=== PATIENT | female | born 1995 | race Caucasian/White ===

== ENCOUNTER → 2016-12-17 | Outpatient (CLI) | payer MEDICAID ==
[~2016-12-17] MED LIST: CIPRO 500MG TA500 MG PO; CITALOPRAM HYDR20 MG PO; CLARITIN-D 12HR1 T12 PO; IBU400 MG PO; KEFLEX 500MG.500 MG PO; MOTRIN 400MG.400 MG PO; NICOTINE T21 MG/24 H TD; NOMEDS XX; PRENATAL FORTE PO; TYLENOL ES500 M1 PO; Tri-Sprintec 281 TAB PO
[2016-12-21 20:36] LABS: Neisseria gonorrhoeae, NAA Negative (Negative)
== END ==
LOC: LAB 16:20
PROVIDERS: Nurse Practitioner Obstetrics & Gynecology
DX: Z72.51 High risk heterosexual behavior (principal)

== ENCOUNTER 2017-03-17 00:31 | Emergency (ER) | payer MEDICAID ==
[~2017-03-17] VITALS: Ht 167.6 cm; Wt 68.0 kg
[2017-03-17 01:11] LABS: AMPHETAMINES/METAMPHETAMINES NEGATIVE ng/mL (<1000)
[2017-03-17 01:14] LABS: URINE BILIRUBIN - DIPSTICK NEGATIVE (NEG); URINE BLOOD TRACE-LYSED (NEG)
[2017-03-17 01:56] LABS: LYMPH # 3.1 K/mm3 (0.7-4.5); LYMPH % 36.4 % (10-50.0)
[2017-03-17 02:01] LABS: HEMOGLOBIN 11.9 g/dL (12.2-16.2)
--- NOTE | 2017-03-17 03:28 | Emergency Room Report ---
History of Present Illness Time Seen by MD Hough Presenting Problem in Triage Pt arrived:Walked Presenting Problem:RIGHT ARM AND LEG NUMBNESS. SHE ADVISES SHE WAS SHOPPING AT [facility] AND TOUCHED AN UNKNOWN WHITE SUBSTANCE AND STARTED ITCHING. 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 N Clinical Suspician of Infection? N Mental Status: 1 - Regular (Normal Baseline) Sepsis Risk: Have you (or family members/close friends) recently traveled outside the [place]? N If Yes, where/when: Have you had exposure to infectious disease within the past month? N TB? Other? Specify: Source patient, RN notes reviewed, old records Exam Limitations no limitations Comment pt with tingling and numbness after exposure to substance at [facility] Cardiac Chest Pain Chest pain indicative of cardiac No Timing/Duration this evening Severity moderate ALLERGIES Coded Allergies: No Known Allergies (02/19/16) History Medical History General CAD? No Angina: No [place]: No Hypertension? No Hyperlipidemia? No CHF? No DVT? No PE? No COPD? No Asthma? No Anemia? No GERD? No Gastric ulcers? No GI Bleed? No Hernia? No Thyroid Problems? No Hypothyroidism? No CVA? No Seizures? No Diabetes? No Renal Insuffiency? No End Stage Renal Disease? No UTI? No Stones? No BPH? No GB Disease: No Nephritic Syndrome? No Asplenia? No Hepatitis? No Sickle Cell Disease? No Arthritis? No Migraines? No Cataracts? No Glaucoma? No MRSA? No HIV? No TB? No Anxiety? Yes Depression? Yes Cancer? No More? 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 Respiratory denies cough, denies shortness of breath, denies wheezing Cardiovascular denies chest pain, denies palpitations, denies syncope Gastrointestinal denies abdominal pain, denies diarrhea, denies vomiting Genitourinary denies: dysuria, frequency, hesitancy, hematuria. Musculoskeletal denies back pain, denies joint pain, denies joint swelling, denies neck pain Skin denies rash Psychiatric/Neurological see HPI, anxiety, denies seizure Physical Exam Vital Signs Vital Signs Date Time Temp Pulse Resp B/P Pulse O2 O2 Flow FiO2 Ox Delivery Rate 03/17 0331 98.2 52 20 114/57 98 03/17 0330 52 20 114/57 98 03/17 0215 57 20 98/57 98 03/17 0038 98.2 63 16 110/60 98 - WBC >12,000 or <4,000 or 10% bands? 2 or more SIRS Criteria Met? B/P: MAP:76 Creatinine >2.0? UA output<0.5ml/kg/hr for 2 hrs? Platelet count >100,000? Lactate >2.0mmol/1? INR >1.2 or PTT > than 60 sec? Evidence of Organ Dysfunction? Provider documented clinical suspician of infection? N Sepsis Criteria Count: 0 Sepsis Risk: General Appearance no apparent distress Eye Exam - bilateral eye PERRL, bilateral eye EOMI Ear, Nose, Throat normal ENT inspection Neck supple Respiratory Status No: respiratory distress. Lung Sounds bilateral: lungs clear. 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 No Results/Orders Laboratory Tests 03/17/17 0140: Sodium 140, Potassium 3.6, Chloride 104, Carbon Dioxide 26, BUN 10, Creatinine 0.7, Estimated Creat Clear 135, Estimated GFR (MDRD) 105, Glucose 87, Calcium 9.0, Total Bilirubin 0.4, AST 9 L, ALT 20, Alkaline Phosphatase 48, Total Protein 7.8, Albumin 4.0, Globulin 3.8 H, Albumin/Globulin Ratio 1.1, WBC 8.5, RBC 4.28, Hgb 11.9 L, Hct 36.4 L, MCV 85.0, RDW 13.3, Plt Count 214, MPV 9.3, Gran % 56.7, Gran # 4.8, Lymphocytes % 36.4, Monocytes % 6.1, Eosinophils % 0.6, Basophils % 0.2, Lymphocytes # 3.1, Monocytes # 0.5, Eosinophils # 0.1, Basophils # 0.0, PUBS MCHC 32.6, MCH 27.7 03/17/17 0050: Opiates Screen NEGATIVE, Urine Methadone Screen NEGATIVE, Barbiturates NEGATIVE, Phencyclidine Screen NEGATIVE, Amphetamines Screen NEGATIVE, Benzodiazepines Screen NEGATIVE, Cocaine Screen NEGATIVE, Marijuana (THC) Screen NEGATIVE, Urine Color YELLOW, Urine Appearance CLEAR, Urine pH 6.0, Ur Specific [place] >= 1.030 , Urine Protein NEGATIVE, Urine Ketones NEGATIVE, Urine Blood TRACE-LYSED, Urine Nitrate NEGATIVE, Urine Bilirubin NEGATIVE, Urine Urobilinogen 0.2, Ur Leukocyte Esterase 1+ H, Urine RBC 3-5, Urine WBC 10-20, Ur Squamous Epith Cells 3-5, Calcium Oxalate Crystal 1+, Urine Bacteria 1+, Urine Mucus 1+, Urine Glucose NEGATIVE Current Medication Orders Sig/Shelia Start time Last Medication Dose Route Stop Time Status Admin Sodium Chloride 10 ML PRN PRN 03/17 0130 AC IV 03/18 0126 Orders Procedure Date/time Status DIET-NOTHING BY MOUTH 03/[address] HEAD W/O CONTRAST 03/[address] HEAD REQ 03/17 012 Complete CBC WITH AUTO DIFF 03/17 012 Complete CHEM 12 PROFILE 03/17 0126 Complete URINALYSIS/COMPLETE 03/17 0108 Complete DRUG ABUSE SCREEN (TRIAGE) 03/17 0052 Complete URINE 03/17 0051 Complete CULTURE, URINE 03/17 0050 Active XRAY/CT/US XRAY/CT/US CT head CT interpretation by discussed w/radiologist Time results known: 0327 CT Results normal/NAD Departure Departure Time of Disposition 032 Disposition DC Home or Self Care(routine) Clinical Impression Primary Impression: Tingling in extremities Condition STABLE Patient Instructions DI for Numbness/tingling Additional Instructions see pcp as needed Discharge Counseling Counseled pt/family regarding diagnosis, test results, follow up needs ED Critical Care Critical Care No at [id number]
--- NOTE | 2017-03-17 03:28 | Emergency Room Report ---
History of Present Illness Time Seen by MD Hough Presenting Problem in Triage Pt arrived:Walked Presenting Problem:RIGHT ARM AND LEG NUMBNESS. SHE ADVISES SHE WAS SHOPPING AT [facility] AND TOUCHED AN UNKNOWN WHITE SUBSTANCE AND STARTED ITCHING. 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 N Clinical Suspician of Infection? N Mental Status: 1 - Regular (Normal Baseline) Sepsis Risk: Have you (or family members/close friends) recently traveled outside the [place]? N If Yes, where/when: Have you had exposure to infectious disease within the past month? N TB? Other? Specify: Source patient, RN notes reviewed, old records Exam Limitations no limitations Comment pt with tingling and numbness after exposure to substance at [facility] Cardiac Chest Pain Chest pain indicative of cardiac No Timing/Duration this evening Severity moderate ALLERGIES Coded Allergies: No Known Allergies (02/19/16) History Medical History General CAD? No Angina: No CA: No Hypertension? No Hyperlipidemia? No CHF? No DVT? No PE? No COPD? No Asthma? No Anemia? No GERD? No Gastric ulcers? No GI Bleed? No Hernia? No Thyroid Problems? No Hypothyroidism? No CVA? No Seizures? No Diabetes? No Renal Insuffiency? No End Stage Renal Disease? No UTI? No Stones? No BPH? No GB Disease: No Nephritic Syndrome? No Asplenia? No Hepatitis? No Sickle Cell Disease? No Arthritis? No Migraines? No Cataracts? No Glaucoma? No MRSA? No HIV? No TB? No Anxiety? Yes Depression? Yes Cancer? No More? 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 Respiratory denies cough, denies shortness of breath, denies wheezing Cardiovascular denies chest pain, denies palpitations, denies syncope Gastrointestinal denies abdominal pain, denies diarrhea, denies vomiting Genitourinary denies: dysuria, frequency, hesitancy, hematuria. Musculoskeletal denies back pain, denies joint pain, denies joint swelling, denies neck pain Skin denies rash Psychiatric/Neurological see HPI, anxiety, denies seizure Physical Exam Vital Signs Vital Signs Date Time Temp Pulse Resp B/P Pulse O2 O2 Flow FiO2 Ox Delivery Rate 03/17 0331 98.2 52 20 114/57 98 03/17 0330 52 20 114/57 98 03/17 0215 57 20 98/57 98 03/17 0038 98.2 63 16 110/60 98 - WBC >12,000 or <4,000 or 10% bands? 2 or more SIRS Criteria Met? B/P: MAP:76 Creatinine >2.0? UA output<0.5ml/kg/hr for 2 hrs? Platelet count >100,000? Lactate >2.0mmol/1? INR >1.2 or PTT > than 60 sec? Evidence of Organ Dysfunction? Provider documented clinical suspician of infection? N Sepsis Criteria Count: 0 Sepsis Risk: General Appearance no apparent distress Eye Exam - bilateral eye PERRL, bilateral eye EOMI Ear, Nose, Throat normal ENT inspection Neck supple Respiratory Status No: respiratory distress. Lung Sounds bilateral: lungs clear. 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 No Results/Orders Laboratory Tests 03/17/17 0140: Sodium 140, Potassium 3.6, Chloride 104, Carbon Dioxide 26, BUN 10, Creatinine 0.7, Estimated Creat Clear 135, Estimated GFR (MDRD) 105, Glucose 87, Calcium 9.0, Total Bilirubin 0.4, AST 9 L, ALT 20, Alkaline Phosphatase 48, Total Protein 7.8, Albumin 4.0, Globulin 3.8 H, Albumin/Globulin Ratio 1.1, WBC 8.5, RBC 4.28, Hgb 11.9 L, Hct 36.4 L, MCV 85.0, RDW 13.3, Plt Count 214, MPV 9.3, Gran % 56.7, Gran # 4.8, Lymphocytes % 36.4, Monocytes % 6.1, Eosinophils % 0.6, Basophils % 0.2, Lymphocytes # 3.1, Monocytes # 0.5, Eosinophils # 0.1, Basophils # 0.0, PUBS MCHC 32.6, MCH 27.7 03/17/17 0050: Opiates Screen NEGATIVE, Urine Methadone Screen NEGATIVE, Barbiturates NEGATIVE, Phencyclidine Screen NEGATIVE, Amphetamines Screen NEGATIVE, Benzodiazepines Screen NEGATIVE, Cocaine Screen NEGATIVE, Marijuana (THC) Screen NEGATIVE, Urine Color YELLOW, Urine Appearance CLEAR, Urine pH 6.0, Ur Specific [place] >= 1.030 , Urine Protein NEGATIVE, Urine Ketones NEGATIVE, Urine Blood TRACE-LYSED, Urine Nitrate NEGATIVE, Urine Bilirubin NEGATIVE, Urine Urobilinogen 0.2, Ur Leukocyte Esterase 1+ H, Urine RBC 3-5, Urine WBC 10-20, Ur Squamous Epith Cells 3-5, Calcium Oxalate Crystal 1+, Urine Bacteria 1+, Urine Mucus 1+, Urine Glucose NEGATIVE Current Medication Orders Sig/Shelia Start time Last Medication Dose Route Stop Time Status Admin Sodium Chloride 10 ML PRN PRN 03/17 0130 AC IV 03/18 0126 Orders Procedure Date/time Status DIET-NOTHING BY MOUTH 03/[address] HEAD W/O CONTRAST 03/[address] HEAD REQ 03/17 012 Complete CBC WITH AUTO DIFF 03/17 012 Complete CHEM 12 PROFILE 03/17 0126 Complete URINALYSIS/COMPLETE 03/17 0108 Complete DRUG ABUSE SCREEN (TRIAGE) 03/17 0052 Complete URINE 03/17 0051 Complete CULTURE, URINE 03/17 0050 Active XRAY/CT/US XRAY/CT/US CT head CT interpretation by discussed w/radiologist Time results known: 0327 CT Results normal/NAD Departure Departure Time of Disposition 032 Disposition DC Home or Self Care(routine) Clinical Impression Primary Impression: Tingling in extremities Condition STABLE Patient Instructions DI for Numbness/tingling Additional Instructions see pcp as needed Discharge Counseling Counseled pt/family regarding diagnosis, test results, follow up needs ED Critical Care Critical Care No at [id number]
[2017-03-17 03:31] VITALS: BP 114/57
--- NOTE | 2017-03-17 06:40 | RADIOLOGY REPORT PS360 ---
CT HEAD W/O CONTRAST HISTORY: C/O DECREASED SENSATION TO RIGHT HAND AND LOWER LEG ORDERING PHYSICIAN: Nixon Ayon MD PATIENT AGE: 21 years COMPARISON: None TECHNIQUE: Axial images obtained without contrast. Brain and bone windows reviewed. FINDINGS: No midline shift, mass effect, intracranial hemorrhage, hydrocephalus, or extra-axial fluid collection is evident. The calvarium has an unremarkable appearance. No mastoid effusion. The visualized paranasal sinuses are unremarkable. IMPRESSION: Negative CT head without contrast. No acute finding.
== END 2017-03-17 03:38 | disposition home or self-care (01) ==
LOC: ER 00:31
PROVIDERS: Emergency Medicine
DX: R20.2 Paresthesia of skin (principal); F41.8 Other specified anxiety disorders

== ENCOUNTER → 2017-03-17 | Outpatient (CLI) | payer MEDICAID | LOC: LAB 17:57 | DX: R53.83 Other fatigue (principal) ==

== ENCOUNTER → 2017-03-31 | Outpatient (CLI) | payer MEDICAID ==
--- NOTE | 2017-03-31 14:38 | RADIOLOGY REPORT PS360 ---
US SOFT TISSUE HEAD/NECK HISTORY: SWOLLEN LYMPH NODES ORDERING PHYSICIAN: ALFREDITO CORTES PATIENT AGE: 21 years COMPARISON: None FINDINGS: General survey was performed of the area of palpable abnormality in the right neck is straightening several areas of oval decreased echogenicity consistent with lymph nodes measuring up to 3.4 x 0.5 cm. Lymph nodes are incidentally noted on the left as well measuring up to 1.6 x 0.6 cm. IMPRESSION: Palpable abnormality in the right neck corresponds to a lymph node. Consider CT of the neck with contrast for more thorough evaluation and better delineation
== END ==
LOC: RAD 09:25
DX: R59.9 Enlarged lymph nodes, unspecified (principal)